=== PATIENT | female | born 1975 | race Caucasian/White ===

== ENCOUNTER 2018-07-31 07:51 | Inpatient (IN) | payer OTHER ==
--- NOTE | 2018-07-24 11:26 | HP ---
Admitting History and Physical - Primary Care Physician PCP: Amado Alberto - Admission Chief Complaint: Left breast cancer DCIS BRCA2+ History of Present Illness: 42 year old premenapausal female BRCA2+ with strong family H/O breast and ovarian cancer. She was followed closely at [facility]. She had reduction mastopexy 1991 and augmentation 1996 and exchange of implants 2003. 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 The DCIS was ER/NE+ but she refused RT and endocrine therapy.She then developed more calcifications lower inner aspect left breast and required excision 04/2017 which showed DCIS high grade with positive margins. She had planned to undergo bilateral mastectomies but cancelled the surgery . . mammogram 05/2018 showed increasing calcifications towards lower inner aspect left breast Stereotactic core bx left breast 05/2018 and again showed intermediate DCIS ER/NE+. On review of the films she has fairly extensive retro areolar calcifications extending up to nipple areolar region therefore can not offer nipple sparing mastectomy on the left. She would like to have a mag tracer injection in [place] and not have a left sentenel node biopsy unless there is an invasive component on her final path report. History Source: Patient Limitations to Obtaining History: No Limitations - Past Medical History Endocrine: Yes: Hypothyroidism (Mis) - Past Surgical History Additional Past Surgical History: Left breast wide excisions x2 01/2016 [facility] 04/2017 for DCIS ER/NE+ refused hormonal or RT reduction mastopexy 1991 and augmentation 1996 with exchange 2003 saline - Smoking History Smoking history: Never smoked Have you smoked in the past 12 months: No - Alcohol/Substance Use Hx Alcohol Use: No Home Medications - Allergies Allergies/Adverse Reactions: Allergies Allergy/AdvReac Type Severity Reaction Status Date / Time bacitracin Allergy Verified 07/24/18 11:29 [From Neosporin ([id number])] neomycin Allergy Verified 07/24/18 11:29 [From Neosporin ([id number])] polymyxin B Allergy Verified 07/24/18 11:29 [From Neosporin ([id number])] - Home Medications Home Medications (free text): synthroid alprazolam,lorazepam Family Disease History - Family Disease History Family Disease History: CA: Father (BRCA+ no cancer), Sister ( Brca + no cancer) Other Family History: pat cousin breast ca BRCA+. pat 2nd cousin ovarian ca 48. pat [place] breast ca 51 Physical Examination Breast(s): Yes: Other (obvious augmentation with saline implants and reduction mastopexy scars on both breasts/ She has periareolar incision from wide excision perforemed 2017.She has very little breast tissue over implants with a lot of thinning of breast tissue. noplapable masses in either breast no palpable adenopahty bilaterally) Problem List - Problems (1) Cancer of left breast Code(s): C50.912 - MALIGNANT NEOPLASM OF UNSPECIFIED SITE OF LEFT FEMALE BREAST Qualifiers: Breast location: unspecified site of breast Estrogen receptor status: positive Patient sex: female Qualified Code(s): C50.912 - Malignant neoplasm of unspecified site of left female breast; Z17.0 - Estrogen receptor positive status [ER+] (2) BRCA gene positive Code(s): Z15.01 - GENETIC SUSCEPTIBILITY TO MALIGNANT NEOPLASM OF BREAST; Z15.09 - GENETIC SUSCEPTIBILITY TO OTHER MALIGNANT NEOPLASM Assessment/Plan Left total mastectomy non nipple sparing and right nipple sparing mastectomy with reconstruction
[2018-07-30 15:48] VITALS: BMI 20.9
[2018-07-31] MEDS ORDERED: ceFAZolin SODIUM 1 GM VIAL ONE (09:23)
[2018-07-31] MEDS ORDERED: GENTAMICIN SO4 80 MG/2 ML VIAL ONE (09:23)
[2018-07-31] MEDS ORDERED: BUPIVACAINE LIPOSOME/PF (EXPAREL) 266 MG/20 ML VIAL ONE (09:44)
[2018-07-31] MEDS ORDERED: BUPIVACAINE HCL/PF 2.5 MG/ML - 30 ML VIAL IJ ONE (09:44)
[2018-07-31] MEDS ORDERED: SODIUM CHLORIDE 0.9% P/F 10 ML VIAL IJ ONE (09:44)
[2018-07-31] MEDS ORDERED: MIDAZOLAM HCL 2 MG/2 ML SINGLE DOSE VIAL ONE (09:58)
[2018-07-31] MEDS ORDERED: fentaNYL CITRATE 250 MCG/5 ML VIAL ONE ×2 (10:01→11:53)
[2018-07-31] MEDS ORDERED: ROCURONIUM BROMIDE 50 MG/5 ML VIAL ONE ×2 (10:02→11:05)
[2018-07-31] MEDS ORDERED: PROPOFOL 20 ML ONE ×6 (10:02→12:54)
[2018-07-31] MEDS ORDERED: SUCCINYLCHOLINE CHLORIDE 200 MG/10 ML VIAL ONE (10:02)
[2018-07-31] MEDS ORDERED: HALOPERIDOL LACTATE 5 MG/ML IM ONE (10:07)
[2018-07-31] MEDS ORDERED: SCOPOLAMINE HYDROBROMIDE 1 PATCH PATCH.TD72 ONE (10:07)
[2018-07-31] MEDS ORDERED: ePHEDrine SULFATE 50 MG/1 ML AMPULE ONE (10:46)
[2018-07-31] MEDS ORDERED: ONDANSETRON 4 MG/2 ML VIAL IVPUSH PRN ×2 (12:42→13:45)
[2018-07-31] MEDS ORDERED: GLYCOPYRROLATE 0.2 MG/1 ML VIAL ONE (13:14)
[2018-07-31] MEDS ORDERED: NEOSTIGMINE METHYLSULFATE 0.5 MG/ML - 10 ML MDV ONE (13:14)
[2018-07-31] MEDS ORDERED: diazePAM 5 MG TABLET PO PRN (13:15)
[2018-07-31] MEDS ORDERED: HYDROmorphone HCL CARPU-JECT 1 MG/1 ML DISP.SYRIN IVPUSH PRN (13:45)
[2018-07-31] MEDS ORDERED: PROMETHAZINE HCL 25 MG/1 ML VIAL IVPUSH PRN (13:45)
[2018-07-31] MEDS ORDERED: oxyCODONE HCL 5 MG TABLET PO PRN ×2 (13:45)
--- NOTE | 2018-07-31 13:49 | OP ---
Operative Note - Note: Operative Date: 07/31/18 Pre-Operative Diagnosis: chest wall abnormality s/p bilateral mastectomy for Breast Cancer Operation: Bilateral breast reconstruction with implants and alloderm Post-Operative Diagnosis: Same as Pre-op Surgeon: Isra Valenzuela Manager Garage: Roula Herron Anesthesiologist/SENIOR PRODUCT CONSULTANT: Fidel Ag Anesthesia: General, Local (experell) Estimated Blood Loss (mls): 50 Drains & Tubes with Location: JPx2 right chest wall. JPx2 Left chest wall Fluid Volume Replaced (mls): 700 Operative Report Dictated: Yes
--- NOTE | 2018-07-31 13:53 | SURG ---
Surgery Forge Helper Note Forge Helper: Roula Herron PA-C Date of Service: 07/31/18 Diagnosis: chest wall abnormality s/p bilateral mastectomy for Breast Cancer Procedure: bilateral breast reconstruction with implants and alloderm I was present for the entirety of the operative procedure. For further detail, please refer to operative report. Visit type - Case Type Case Type: Scheduled - Emergency Emergency Visit: No - New patient This patient is new to me today: Yes Date on this admission: 07/31/18
--- NOTE | 2018-07-31 14:07 | OP ---
DATE OF OPERATION: 07/31/2018 PREOPERATIVE DIAGNOSES: Left breast ductal carcinoma in situ and genetic susceptibility to breast cancer. 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 PROCEDURE: Left breast total mastectomy with right breast prophylactic, nipple-sparing mastectomy, with bilateral direct-implant reconstruction with AlloDerm. ANESTHESIA: General endotracheal. PRIMARY SURGEON: Yuni Cam MD TOBACCO STEMMER MACHINE: SHOAIB Tom PRIMARY SURGEON FOR THE BILATERAL DIRECT-IMPLANT RECONSTRUCTION: Yuni Valenzuela MD COMPLICATIONS: None. Briefly, the patient is a 42-year-old, G2, P2, premenopausal white female with [place] and [place] descent. She has a strong family history with her paternal great aunt who had breast cancer at age 51 and paternal cousin had breast cancer at age 33. Her paternal great-grandmother had breast cancer at age 40. Her paternal second cousin had ovarian cancer at age 48. The patient, as well as her paternal cousin and father and sister, all tested BRCA2 positive. She has a history of a prior reduction mastopexy in 1991 and had augmentation implants in 1996 with exchange of the implants in 2003 to saline implants. She was diagnosed with DCIS in the left breast lower inner quadrant back in January 2016 and underwent a wide excision, but had close margins. She refused radiation as well as endocrine therapy. She developed more calcifications in the left breast lower outer quadrant and underwent another wide excision in April 2017, again showing DCIS with necrosis and had positive margins. She was seen by me back in May 2017 and was advised to undergo bilateral mastectomies and was scheduled for surgery, but canceled it. She then presented a year later, again with increasing calcifications on mammography and stereotactic biopsy again showed DCIS which was ER/CO positive. MRI continued to show enhancement in the left breast consistent with the known cancer. She was again advised to undergo bilateral mastectomies given her BRCA2-positive status and now, given the extent of the calcifications, need to remove the nipple. She was advised to undergo a sentinel lymph node biopsy in the left axilla, but did not want to have any nodes removed at the time of surgery and investigated the use of Magtracer. Since this was a new technology not available in [place], she went to [place] and had the injection and presents for the bilateral mastectomies and did not require sentinel lymph node biopsy given that she only had noninvasive cancer. The patient presented on July 31, 2018, and in the holding area, site verification was made, and informed consent was obtained. She was marked preoperatively by the plastic surgeon. She understood the need for removal of the nipple on the left cancer side, and we were to save the nipple on the right side and perform a retroareolar biopsy, and as long as the pathology was negative intraoperatively, we would save the right nipple. The patient was brought into the operating room and laid on the OR table in the supine position. Venodynes were placed on the lower extremities prior to induction. She received 2 g of Ancef prior to incision. She underwent general endotracheal anesthesia. Both breasts were sterilely prepped and draped in usual fashion. Timeout was called. At this point, the left mastectomy was first performed. We did this through a circumareolar incision. Skin flaps were raised using the PEAK radiofrequency device superiorly to the level of the clavicle, medially to the level of the sternum, laterally to the level of the latissimus, inferiorly below the level of the inframammary fold. The breast was completely taken down off the pectoralis major muscle using electrocautery. The implant was removed and was in a subpectoral location. The breast tissue was completely excised and oriented with a long lateral/short superior suture and weighed to allow for appropriate cosmetic results. Hemostasis was achieved. Separate margins were then taken on the anterior lower inner quadrant, anterior lower outer quadrant, and anterior upper outer quadrant. These were all sent separately to Pathology as margins with sutures marking the biopsy cavity side. Hemostasis was achieved, and the wound was copiously irrigated. At this point, separate instruments, gloves were changed, and the prophylactic mastectomy on the right side was performed through an 11-cm incision using the prior inframammary incision from her prior reduction mastopexies. The skin edges were everted, and the breast was retracted inferiorly using Juan José clamps. The skin flap was raised using the PEAK radiofrequency device superiorly to the level of the clavicle, medially to the level of the sternum, laterally to the level of the latissimus, and inferiorly below the level of the inframammary fold. The breast was taken down off the pectoralis major muscle using electrocautery, and the implant was again removed on the right side. The breast tissue was completely excised from inferomedial to superolateral and completely removed intact. It was oriented with a long lateral/short superior suture and weighed to allow for appropriate cosmetic result. The breast tissue was weighed. Skin flaps were trimmed for good cosmetic result, and hemostasis was achieved. The wound was copiously irrigated with warm sterile saline. It should be noted that the left mastectomy specimen was x-rayed to show removal of the prior biopsy clip in question. A retroareolar biopsy was taken underneath the right nipple-areolar complex and sent for frozen section, came back negative; so, the right nipple was spared. At this point, Dr. Valenzuela became the primary surgeon and performed bilateral direct-implant reconstruction using silicon subpectoral implants and AlloDerm to allow for the direct-implant reconstruction. Two Jhonny drains were placed around each implant, brought through separate stab incisions on the lateral aspect of the skin flaps, and secured in place using 3-0 nylon suture. All wounds will be closed separately by Plastic Surgery. We did use the SPY skin perfusion device during the case, which showed good skin perfusion bilaterally even around the right nipple-areolar complex. The patient will be extubated and recovered in the postanesthesia care unit and will be admitted postoperatively for pain and wound management. She did have 60 mL of Exparel diluted with 0.25% Marcaine and saline injected into both chest johns prior to closure for postop pain relief. All sponge and needle counts were correct at the end of the mastectomy part of the case, and estimated blood loss was about 100 mL. She was hemodynamically stable. YUNI CAM M.D. [id number]
[2018-07-31] MEDS: DEXTROSE 5%-0.45% SALINE 1,000 ML IV SCH (15:27)
[2018-07-31] MEDS: CEFAZOLIN 1 GM/D5W 1 GRAM/50 ML BAG IVPB SCH ×2 (15:27→20:58)
[2018-07-31] MEDS: oxyCODONE HCL 5 MG TABLET PO PRN (15:41)
--- NOTE | 2018-07-31 18:22 | OP ---
DATE OF OPERATION: 07/31/2018 SURGEON: Yuni Valenzuela MD FOXING CLOSER SURGEON: Roula Herron PA-C PREOPERATIVE DIAGNOSES: 1. Bilateral acquired chest wall deformity status post bilateral mastectomy (611.89). 2. Personal history of genetic carcinoma. POSTOPERATIVE DIAGNOSES: 1. Bilateral acquired chest wall deformity status post bilateral mastectomy (611.89). 2. Personal history of genetic carcinoma. PROCEDURE: 1. Right immediate breast reconstruction utilizing immediate insertion of silicone breast implant and AlloDerm reconstruction. 2. Left immediate breast reconstruction utilizing immediate insertion of silicone breast implant and AlloDerm reconstruction. 3. Intravenous injection of indocyanine green dye and intraoperative diagnostic evaluation of non-coronary intraoperative fluorescein vascular angiography x 2. OPERATIVE PROCEDURE IN DETAIL: The patient was taken to the operating room. After induction of general anesthesia in the supine position, both arms were extended and padded. Venodyne boots were placed. The entire chest wall was painted with ChloraPrep solution over its entire extent, and sterile drapes were placed in the usual fashion. The markings, which had been made in the standing position preoperatively, were reoutlined with the patient's knowledge. Time-out procedure was performed. Attention was turned by Dr. Alberto to the mastectomies. Bilateral inframammary incisions were made and Dr. Alberto performed mastectomies. This will be dictated under separate cover. Upon completion of the mastectomies, the wounds were copiously irrigated and attention was turned to the right breast. A subpectoral dissection was begun on the right breast, superiorly from the second rib, medially to the sternal fibers, and down to the inframammary fold, elevating the pectoralis major muscle from its insertion. At this point, an 8.0 x 16.0 sheet of medium contour perforated AlloDerm was brought into the field and sutured superiorly along the pectoralis major muscle after rehydration. This was carried along the lateral mammary fold and down the side of the breast reconstruction. At this point, a Hibernia MemoryGel Xtra breast implant smooth high profile style number [id number] mL was chosen. The left breast tissue removed was 173 gm plus an implant of 492 gm equaling a total of 665 gm of tissue on the left breast, and the right breast approximately 182 gm plus an implant weight of 481 gm giving a total of 663 gm on the right breast. This implant was placed and then sutured with 3-0 Vicryl suture continued along the inframammary fold, completely covering the implant itself. The exact same procedure was carried out symmetrically on the opposite breast, also placing a Hibernia MemoryGel Xtra breast implant smooth high profile style number [id number] mL implant in the same subpectoral pocket. Good symmetry was seen in the sitting position. After the implants were in place, the patient was injected with 10 mL of Isocyanide green dye and the Spy imaging system was brought into the field. The skin flowed to the right and left breasts and the nipple areolar complex, and the entire skin flaps were evaluated and seen to be viable with good blood flow. Two Jhonny drains were brought out through separate stab wounds laterally. The Smart Infuser pump catheter was inserted medially and into the subpectoral position. Both wounds were closed symmetrically using 3-0 PDS suture on the deep tissue, 3-0 in a deep dermal fashion, and 4-0 in a subcuticular fashion. Both wounds were dressed sterilely with Mastisol and Steri-Strips with a surgical bra and a compression strap. The patient tolerated the procedure well. She was awakened, extubated and transferred to the recovery room in satisfactory condition. The mailing machine assistant was present during the entire portion of the operation and closure. YUNI VALENZUELA M.D. [id number]
[2018-07-31] MEDS: ACETAMINOPHEN 325 MG TABLET (FP) PO PRN (23:05)
[2018-08-01] MEDS: CEFAZOLIN 1 GM/D5W 1 GRAM/50 ML BAG IVPB SCH ×4 (02:02→21:38)
[2018-08-01] MEDS: ACETAMINOPHEN 325 MG TABLET (FP) PO PRN ×2 (04:25→14:57)
[2018-08-01] MEDS: LEVOTHYROXINE NA 100 MCG TABLET (FP) PO SCH (07:18)
[2018-08-01] MEDS: HEPARIN NA (PORCINE) 5,000 UNITS/ML 1ML VIAL SQ SCH ×2 (07:53→21:54)
--- NOTE | 2018-08-01 08:52 | PN ---
Progress Note, Physician Chief Complaint: Bilateral total mastectomies with alloderm and implant reconstruction for left breast DCIS, BRCA2 +, POD#! History of Present Illness: patient C/O breast pain and spasm and difficulty sleeping . some blurred vision most likely due to scopolamine patch but would like to still keep it on no nausea or vomiting,eating and drinking. Ambulating with office support assistant. BP came up to 90/42. - Current Medication List Current Medications: Active Medications Acetaminophen (Tylenol -) 650 mg PO Q4H PRN PRN Reason: FEVER Last Admin: 08/01/18 04:25 Dose: 650 mg Diazepam (Valium -) 5 mg PO BID PRN PRN Reason: ANXIETY Diazepam (Valium -) 2 mg PO Q8H [facility] Heparin Sodium (Porcine) (Heparin -) 5,000 unit SQ BID@0800,2000 [facility] Last Admin: 08/01/18 07:53 Dose: 5,000 unit Hydromorphone HCl (Dilaudid Injection -) 0.5 mg IVPUSH [id number] PRN PRN Reason: PAIN-PACU ORDER X 4 DOSES ONLY Cefazolin Sodium (Ancef 1 Gm Premixed Ivpb -) 1 gram in 50 mls @ 100 mls/hr IVPB Q6H-IV [facility] Stop: 08/07/18 14:59 Last Admin: 08/01/18 02:02 Dose: 100 mls/hr Dextrose/Sodium Chloride (D5-1/2ns -) 1,000 mls @ 100 mls/hr IV ASDIR [facility] Last Admin: 07/31/18 15:27 Dose: Not Given Levothyroxine Sodium (Synthroid -) 100 mcg PO DAILY@0700 [facility] Last Admin: 08/01/18 07:18 Dose: Not Given Ondansetron HCl (Zofran Injection) 4 mg IVPUSH Q6H PRN PRN Reason: NAUSEA AND/OR VOMITING Oxycodone HCl (Roxicodone -) 5 mg PO Q4H PRN PRN Reason: PAIN LEVEL 1-5 Oxycodone HCl (Roxicodone -) 10 mg PO Q4H PRN PRN Reason: PAIN LEVEL 6-10 Last Admin: 07/31/18 15:41 Dose: 10 mg - Objective Vital Signs: Vital Signs Temperature 97.8 F 08/01/18 05:00 Pulse Rate 68 08/01/18 07:53 Respiratory Rate 16 08/01/18 08:28 Blood Pressure 90/42 L 08/01/18 07:53 O2 Sat by Pulse Oximetry (%) 100 08/01/18 08:28 Constitutional: Yes: Well Nourished, No Distress Breast(s): Yes: Other (Viable bilateral flaps incision intact steristrips very minimal echymosis, some discoloration left breast from mag injection, lonnie drains functioning well no infection) Labs: CBC, BMP 08/01/18 07:00 Problem List - Problems (1) Cancer of left breast Code(s): C50.912 - MALIGNANT NEOPLASM OF UNSPECIFIED SITE OF LEFT FEMALE BREAST Qualifiers: Breast location: unspecified site of breast Estrogen receptor status: positive Patient sex: female Qualified Code(s): C50.912 - Malignant neoplasm of unspecified site of left female breast; Z17.0 - Estrogen receptor positive status [ER+] (2) BRCA gene positive Code(s): Z15.01 - GENETIC SUSCEPTIBILITY TO MALIGNANT NEOPLASM OF BREAST; Z15.09 - GENETIC SUSCEPTIBILITY TO OTHER MALIGNANT NEOPLASM Assessment/Plan continue IV antibiotics SCD spirometry ambulation with assistance valium 2mg TID consider toradol IV consider removing scopolamine patch later Tylenol /oxycodone pRN plan for discharge tomorrow
[2018-08-01 09:04] LABS: HEMATOCRIT 33.1 % (32.4-45.2); MCH 30.4 pg (25.7-33.7); MCHC 33.3 g/dl (32.0-36.0); MEAN CELL VOLUME 91.2 fl (80-96); MEAN PLT VOLUME 7.8 fl (7.5-11.1); PLATELET COUNT 179 K/MM3 (134-434); RBC 3.63 M/mm3 (3.60-5.2); RDW 12.3 % (11.6-15.6); WHITE BLOOD COUNT 7.3 K/mm3 (4.0-10.8)
[2018-08-01] MEDS: diazePAM 2 MG TABLET PO PRN ×3 (09:04→22:49)
[2018-08-01] MEDS ORDERED: KETOROLAC TROMETHAMINE 30 MG/1 ML VIAL IVPUSH ONE (09:45)
[2018-08-01] MEDS: oxyCODONE HCL 5 MG TABLET PO PRN ×3 (11:45→21:40)
--- NOTE | 2018-08-01 14:25 | PN ---
Progress Note (short form) - Note Progress Note: S: Pt. resting in bed. c/o 11/12 upper back pain, muscular in nature, non- radiating. Incisional pain 05/15. Also c/o blurry vision, dry mouth and drowsiness. No n/v O: Last Vital Signs Temp Pulse Resp BP Pulse Ox 97.8 F 62 18 98/51 L 100 08/01/18 05:00 08/01/18 11:41 08/01/18 11:41 08/01/18 11:41 08/01/18 08:28 A/P: POD #1 s/p Left Total Mastectomy, Right Non Nipple Sparing Mastectomy with bilateral reconstruction 1. Back pain - likely muscular in nature. continue with pain meds. Will try oxycodone. 2. Incisional pain - well controlled 3. Blurry vision, dry mouth, drowsiness - likely due to the scopolamine patch. Expalined to the patient that the side effects were not dangerous and she can remove the patch at her discretion.
[2018-08-01] MEDS: DEXTROSE 5%-0.45% SALINE 1,000 ML IV SCH (14:41)
[2018-08-02] MEDS: oxyCODONE HCL 5 MG TABLET PO PRN ×3 (01:10→09:17)
[2018-08-02 01:38] VITALS: TEMP 98.8
[2018-08-02] MEDS: CEFAZOLIN 1 GM/D5W 1 GRAM/50 ML BAG IVPB SCH ×2 (02:26→09:14)
[2018-08-02] MEDS: diazePAM 2 MG TABLET PO PRN ×2 (05:12→11:55)
[2018-08-02] MEDS: LEVOTHYROXINE NA 100 MCG TABLET (FP) PO SCH (07:22)
[2018-08-02] MEDS: HEPARIN NA (PORCINE) 5,000 UNITS/ML 1ML VIAL SQ SCH (08:02)
[2018-08-02 08:05] VITALS: PULSE 66
[2018-08-02] MEDS: ACETAMINOPHEN 325 MG TABLET (FP) PO PRN (11:55)
[2018-08-02 12:45] VITALS: BP 104/62
--- NOTE | 2018-08-05 15:57 | PATH ---
Surgical Pathology Report Patient Name: JOVITA CRAIN Med. Rec. #: [id number] /Age/Gender: 1975 (Age: 42) / F Account: [id number] Location: [facility], [facility] Taken: 07/31/2018 Received: 07/31/2018 Reported: 08/05/2018 Physicians: Amado Alberto M.D. Specimen(s) Received A: RIGHT RETROAREOLAR BIOPSY (FS) B: RIGHT BREAST IMPLANT C: RIGHT BREAST D: LEFT BREAST E: LEFT BREAST ANTERIOR MARGIN LOWER INNER QUADRANT F: LEFT BREAST MARGIN UPPER OUTER QUADRANT G: LEFT BREAST ANTERIOR MARGIN LOWER OUTER QUADRANT H: LEFT BREAST IMPLANT Clinical History Toe and of Left Breast Cancer/ BRCA+ Intraoperative Consult Diagnosis Right retroareolar biopsy, frozen section: Benign breast tissue. Kartik Hickman M.D., July 31, 2018 Final Diagnosis A. retroareola, right, biopsy (FS): Benign breast tissue. B. implant, right breast, removal: Implant, as described (gross examination only). C. breast, right, nipple-sparing mastectomy: Benign breast tissue WITH FIBROUS CAPSULE. D. breast, left, total mastectomy: Ductal carcinoma in situ (DCIS), solid and cribriform type, with moderate necrosis, associated calcifications and lobular extension, present in the lower outer quadrant (LOq) AND RETROAREOLAR REGION. DCIS is present in four of seventeen slides (4/17). Surgical margins are uninvolved by DCIS; DCIS is aT 6 mm FROM the closest (deep) margin. DCIS involves large lactiferous duct(s) of nipple; nipple epidermis is uninvolved by DCIS. Skin is uninvolved by DCIS. see also specimens E-G for final anterior margin. Prior biopsy site changes are PRESENT. Fibrous capsule. Pathologic stage (pTNM): pTis (dcis) pNx. see also DCIS case summary below. Note: E-cadherin immunostain (performed at [facility]; block D10) demonstrates strong membranous positivity in the foci of DCIS, which supports ductal phenotype. E. Breast, left, anterior margin, lower inner quadrant, excision: Benign breast tissue showing focal prior biopsy site changes. F. breast, left, anterior margin, UPPER OUTER quadrant, excision: Benign fibroadipose tissue and scant skeletal muscle. G. breast, left, anterior margin, lower outer quadrant, excision: Benign fibroadipose tissue and portion of fibrous capsule. H. implant, left breast, removal: Implant, as described (gross examination only). Comments DCIS of the Breast: Surgical Pathology Cancer Case Summary (Based on AJCC TNM 8 th edition) Procedure _X_ Total mastectomy (including nipple-sparing and skin-sparing mastectomy) Specimen Laterality _X_ Left Size (Extent) of DCIS Estimated size (extent) of DCIS (greatest dimension using gross and microscopic evaluation): at least 6 mm Number of blocks with DCIS: 4 Number of blocks examined: 44 (based on specimens D-G) Note: The size (extent) of DCIS is an estimation of the volume of breast tissue occupied by DCIS. Histologic Type _X_ Ductal carcinoma in situ Architectural Patterns _X_ Cribriform _X_ Solid Nuclear Grade _X_ Grade II (intermediate) Necrosis _X_ Present, central (expansive "comedo" necrosis) Margins _X_ Uninvolved by DCIS Distance from closest margin (millimeters): 6 mm from deep margin Regional Lymph Nodes _X_ No lymph nodes submitted or found Pathologic Stage Classification (pTNM, AJCC 8th Edition) Primary Tumor (pT) _X_ pTis (DCIS): Ductal carcinoma in situ Regional Lymph Nodes (pN) _X_ pN: pNx Microcalcifications _X_ Present in DCIS Biomarker Studies Results of ER and DE studies performed on this specimen (block D14) at [facility] are as follows: ER (clone [id number] mouse monoclonal antibody by [employer]): 100 % nuclear staining with strong intensity (positive). DE (clone16 mouse monoclonal antibody by [employer]) : ~40 % nuclear staining with moderate to strong intensity (positive). Positive and negative controls (internal if applicable) show appropriate results. Formalin fixation time is within current ASCO/CAP recommendations for ER, DE and Her2 testing. Time to formalin fixation is not given. Electronically Signed Roula Dominguez M.D. Gross Description A. Received fresh for frozen section labelled "right retroareolar biopsy" is a 1.7 x 0.8 x 0.3 cm portion of pink and currie tissue. The specimen is frozen in its entirety, and the frozen remainder is submitted in cassette FSA. B. Received without fixative, labeled "right breast implant," is a 14 cm in diameter x 2.5 cm in depth clear, rubbery, intact breast implant. No soft tissue is present. No sections are submitted, gross only. C. Received in formalin, labeled "right breast," is a 194 gram, 15.0 x 13.5 x 2.3 cm. right mastectomy specimen with a short suture marking the superior aspect and a long suture marking the lateral aspect of the specimen, per the surgeon. There is no skin or nipple present. The deep margin displays a 10.5 x 4.0 cm exposed fibrous capsule. The deep margin is inked black and the anterior soft tissue margin is inked blue. The specimen is serially sectioned from lateral to medial. Sectioning reveals white fibrous tissue interspersed with adipose tissue. [employer] sections are submitted in 11 cassettes as follows: 1-2-upper outer quadrant; 3-4-lower outer quadrant; 5-6-upper inner quadrant; 7-9-lower inner quadrant; 10-anterior soft tissue margin; 11-deep margin. D. Received in formalin, labeled "left breast," is a 187 gram, 17.5 x 12.0 x 1.5 cm. left mastectomy specimen with a short suture marking the superior aspect and a long suture marking the lateral aspect of the specimen, per the surgeon. The anterior surface displays a 2.6 x 2.0 cm currie, elliptical portion of skin with a 1.3 cm in diameter nipple. The deep margin displays a 13.5 x 5.0 cm exposed fibrous capsule. The deep margin is inked black and the anterior soft tissue margin is inked blue. The specimen is serially sectioned from medial to lateral. Sectioning reveals a biopsy cavity with surrounding dense fibrosis in the lower outer quadrant (LOQ). The remaining breast tissue shows white fibrous tissue interspersed with adipose tissue. Inside [employer] sections are submitted in 17 cassettes as follows: 1-serially sectioned nipple; 2-subareolar shave; 3-4-upper inner quadrant; 5-6-lower inner quadrant; 7-10-lower outer quadrant; 11,12--upper outer quadrant; 55-92-vworliqytvdp tissue; 15-anterior soft tissue margin; 16-skin; 17-deep margin. Time to formalin fixation: Not given Total formalin fixation time: Approximately 26 hours E. Received in formalin labeled "left breast anterior margin lower inner quadrant," is an 8.0 x 3.9 x 0.8 cm portion of fibroadipose tissue with an undesignated suture present. The margin with the suture is inked blue and the opposing margin is inked red. Sectioning reveals minimal fibrous tissue. The specimen is entirely and sequentially submitted in 12 cassettes. F. Received in formalin labeled "left breast anterior margin upper outer quadrant," is a 7.0 x 3.7 a 0.6 cm portion of fibroadipose tissue with an undesignated suture present. The margin with the suture is inked blue and the opposing margin is inked red. Sectioning reveals minimal fibrous tissue. The specimen is entirely and sequentially submitted in 11 cassettes. G. Received in formalin labeled "left breast anterior margin lower outer quadrant," is a 3.0 x 1.6 x 1.1 cm portion of fibroadipose tissue with an undesignated suture present. The margin with the suture is inked blue and the opposing margin is inked red. The specimen is entirely and sequentially submitted in 4 cassettes. H. Received fresh labeled "left breast implant," is a 14 cm in diameter x 2.5 cm in depth clear, rubbery, intact breast implant. No soft tissue is present. No sections are submitted, gross only. DL07/31/2018 [facility]/07/31/2018
== END 2018-08-02 13:35 | disposition home or self-care (01) | DRG 578 ==
LOC: FM/S 07:51
PROVIDERS: ADMIT Surgery Surgical Oncology; ATTEND Surgery Surgical Oncology
PROC: 0HTV0ZZ Resection of Bilateral Breast, Open Approach (ICD-10-PCS; 2018-07-31)
PROC: 0HRVXKZ (ICD-10-PCS; principal; 2018-07-31 10:42)
PROC: 0HRV0JZ Replacement of Bilateral Breast with Synthetic Substitute, Open Approach (ICD-10-PCS; 2018-07-31 10:42)
DX: C50.912 Malignant neoplasm of unspecified site of left female breast (principal); Z17.0 Estrogen receptor positive status [ER+]; Z80.3 Family history of malignant neoplasm of breast; Z80.41 Family history of malignant neoplasm of ovary; Z15.01 Genetic susceptibility to malignant neoplasm of breast
CPT/HCPCS: 36415; 84703; 85027; 88300-TC; 88307-TC; 88331-TC; 88342-TC; 94760; J1644